=== PATIENT | male | born 1950 | race Caucasian/White ===

== ENCOUNTER 2021-03-09 10:50 | Day surgery (SDC) | payer MEDICARE, OTHER ==
[~2021-03-09] VITALS: Ht 180.3 cm; Wt 77.2 kg
[~2021-03-09 10:50] MED LIST: ACCUPRIL20TAB PO; MULTIVITAMIN SEN PO; PRAVACHOL 20MG20 MG PO; THE MEDICINE S200 M2 PO; ZYLOPRIM 100MG100 MG PO
--- NOTE | 2021-03-09 11:05 | NUR ---
Patient is alert and oriented. Consent reviewed and patient verbalized understanding of procedure, signing the related paperwork. Medications and HX reviewed. Patient voided prior to changing into his clean gown. Warm blanket provided. Vitals obatined. Non-slip socks are on. IV started in R FA on first attempt. LR is infusing without difficulty and set to 100ml/hr. Physical assessment completed, see physical asssessment in [facility] [place]. Side rails x2. Call hoffmann is at bedside. First and last name + verfied with patient and compared to wristband.
[2021-03-09] MEDS ORDERED: ALLOPURINOL PO (11:27)
[2021-03-09] MEDS ORDERED: NORVASC 5MG5 MG/TAB PO (11:27)
[2021-03-09 11:58] VITALS: BP 130/86; PULSE 97; TEMP 98.7
--- NOTE | 2021-03-09 14:10 | NUR ---
Patient was taken back to the OR by NIKI Ruiz.
[2021-03-09] MEDS ORDERED: NORCO 325 MG-51 TAB PO (15:54)
[2021-03-09 16:35] VITALS: BP 151/86; PULSE 81; TEMP 97.8
--- NOTE | 2021-03-09 16:35 | NUR ---
Patient arrived on cart from PACU, escorted by Coni PRINCE. Report obtained. Vitals obtained. Patient is tolerating his ice chips well and requested a cold sprite to drink. Call hoffmann is at bedside. Side rails x2. Will continue to monitor per intervals.
[2021-03-09 16:50] VITALS: BP 130/83; PULSE 84
--- NOTE | 2021-03-09 16:50 | NUR ---
VITALS OBTAINED. PATIENT IS TOLERATING HIS SPRITE.
--- NOTE | 2021-03-09 17:00 | NUR ---
PATIENT GOT NEAUSOUS AND VOMITED ONCE. HE STATES FELLING BETTER. ZOFRAN TO BE ADMINISTERED.
[2021-03-09 17:05] VITALS: BP 131/83; PULSE 94
--- NOTE | 2021-03-09 17:15 | NUR ---
PATIENT REQUESTED CRACKERS AND IS TOLERATING THEM WELL.
--- NOTE | 2021-03-09 17:30 | NUR ---
Patient is calling his brother.
--- NOTE | 2021-03-09 17:40 | NUR ---
Patient was assisted to bathroom by NIKI Calvo and NIKI Chase. Patient was able to successfully void and ambulate back to his bed without difficulty. Denies nausea.
[2021-03-09 17:50] VITALS: BP 122/81; PULSE 85
--- NOTE | 2021-03-09 17:52 | NUR ---
public area supervisor was called to update her on my patients current situation. She said she would call me back with more information.
--- NOTE | 2021-03-09 17:57 | NUR ---
supervisor forming department called and said it was fine to escort patient to ED entrence to wait for his ride. His brother is on his way from [place].
--- NOTE | 2021-03-09 18:00 | NUR ---
Discharge instructions were reviewed at this time, along with educational material. Patient verbalized understanding of discharge information. IV was discontinued at this time due to impending discharge. Catheter tip is intact. Pressure dressing applied. Patient denied needing help to change.
--- NOTE | 2021-03-09 18:30 | NUR ---
Patient was escorted to the ED waiting room to wait for his ride to arrive. Patient has his discharge instructions, educational material and personal belongings. Patient denies having any further questions or concerns.
== END 2021-03-09 18:30 | disposition home or self-care (01) ==
LOC: SDCO 10:50
DX: K40.20 Bilateral inguinal hernia, without obstruction or gangrene, not specified as recurrent (principal); I10 Essential (primary) hypertension; E78.00 Pure hypercholesterolemia, unspecified; E78.5 Hyperlipidemia, unspecified; M19.90 Unspecified osteoarthritis, unspecified site; Z79.899 Other long term (current) drug therapy; Z90.79 Acquired absence of other genital organ(s); Z85.46 Personal history of malignant neoplasm of prostate; Z80.42 Family history of malignant neoplasm of prostate; Z80.8 Family history of malignant neoplasm of other organs or systems
CPT/HCPCS: C1781; J0690; J1100; J1170; J2405; J2704; J3010; J7120

== ENCOUNTER 2023-05-10 11:29 | Day surgery (SDC) | payer MEDICARE, OTHER ==
[2023-05-10] VITALS (7 sets, daily range): BP systolic 107–152; BP diastolic 71–93; PULSE 58–114; TEMP 97.4–98.1
[~2023-05-10] VITALS: Ht 180.3 cm; Wt 82.8 kg
[~2023-05-10 11:29] MED LIST changes: +ALLOPURINOL PO; +LR 1,000 ML IV SCH; +NORCO 325 MG-51 TAB PO; +NORVASC 5MG5 MG/TAB PO
[2023-05-10] MEDS ORDERED: MULTI VITAMINS1 TAB PO (12:44)
[2023-05-10] MEDS ORDERED: THE MEDICINE S200 M2 PO (12:44)
[2023-05-10] MEDS ORDERED: fentaNYL 50 MCG/ML 2 ML VIAL ONE (12:50)
[2023-05-10] MEDS ORDERED: Lidocaine PF 2% (20 MG/ML) 5 ML VIAL ONE (12:51)
[2023-05-10] MEDS ORDERED: dexAMETHasone 10 MG/ML VIAL ONE (12:52)
[2023-05-10] MEDS ORDERED: Ondansetron 4 MG/2 ML VIAL ONE (12:52)
[2023-05-10] MEDS ORDERED: NS 10 ML IV ONE (12:52)
[2023-05-10] MEDS ORDERED: Ondansetron 4 MG/2 ML VIAL IV PRN (13:00)
[2023-05-10] MEDS ORDERED: Morphine 4 MG/ML VIAL IV PRN (13:00)
[2023-05-10] MEDS ORDERED: HYDROmorphone 2 MG/1 ML VIAL IV PRN (13:00)
[2023-05-10] MEDS ORDERED: hydrALAZINE 20 MG/ML 1 ML VIAL IV PRN (13:00)
[2023-05-10] MEDS ORDERED: fentaNYL 50 MCG/ML 2 ML VIAL IV PRN (13:00)
[2023-05-10] MEDS ORDERED: Lidocaine 2% (20 MG/ML) 20 ML UROJET UR ONE (14:09)
[2023-05-10] MEDS ORDERED: oxyCODONE/Acetaminophen 5-325 MG TAB PO PRN (15:00)
[2023-05-10] MEDS ORDERED: Ketorolac 15 MG/ML VIAL IV PRN (15:00)
[2023-05-10] MEDS ORDERED: Hyoscyamine 0.125 MG Sublingual TAB SL PRN (15:00)
[2023-05-10] MEDS ORDERED: Apixaban 5 MG TAB PO SCH (15:44)
[2023-05-10] MEDS ORDERED: ELIQUIS 5MG PO (15:45)
[2023-05-10] MEDS ORDERED: TOPROL XL 25MG25 MG PO (15:45)
--- NOTE | 2023-05-10 15:45 | NUR ---
PATIENT RETURNED TO ROOM 7 VIA CART, ALERT AND ORIENTED X3. PATIENT IS PLEASANT AND RATES PAIN TOLERABLE (2/10) TO RIGHT FLANK, DENIES ANY OTHER PAIN. DENIES PAIN INTERVENTIONS. DENIES NAUSEA AND SHORTNESS OF BREATH. BREATHING REGULAR AND UNLABORED ON ROOM AIR. LUNG SOUNDS CLEAR BILATERAL. HEART RATE AND RHYTHM IRREGULAR. PATIENT EVALUATED IN PACU BY CARDIOLOGY PRIOR TO TRANSFER. SEE CARDIOLOGY NOTE. SKIN WARM AND DRY. NO EDEMA. ABDOMEN SOFT AND ROUNDED. SEE CHART FOR VITAL SIGNS. NURSE HANDOFF COMPLETED IN ROOM. PATIENT HAD SPRITE AND A MUFFIN. BOTH FOOD AND DRINK TOLERATED WELL. NO DYSPHAGIA. 1557: PRIMARY NURSE SPOKE WITH ELIZABETH DURAN REGARDING CARDIOLOGY FOLLOW UP APPOINTMENTS AND PLAN. 1603: SEE EMAR FOR ELIQUIS AND METOPROLOL ADMINISTERED. SEE CHART FOR VITAL SIGNS.
--- NOTE | 2023-05-10 16:58 | NUR ---
1629: PATIENT AMBULATED TO RESTROOM WITH STEADY GAIT AND VOIDED WITHOUT DIFFICULTY. DENIES BLOOD CLOTS IN URINE. DENIES FEELING LIGHT HEADED OR SHORT OF BREATH. STATES PAIN IS "TOLERABLE" 2/10 TO RIGHT FLANK. DENIES PAIN INTERVENTIONS. 1639: DISCHARGE TEACHING COMPLETED WITH PRINTED UROLOGY EDUCATION AND INSTRUCTIONS SENT HOME WITH PATIENT. NEW CARDIAC MEDICATIONS, DIAGNOSIS, RISKS FOR BLEEDING AND BLOOD CLOTS DISCUSSED WITH EDUCATIONAL MATERIAL SENT HOME WITH PATIENT. PATIENT VERBALIZED UNDERSTANDING OF UROLOGY FOLLOW UP APPOINTMENT DATE/TIME AND LOCATION. INSTRUCTED PATIENT TO WAIT FOR A CALL FROM OFFICE TO SCHEDULE FOLLOW UP STUDIES. PATIENT VERBALIZED UNDERSTANDING. 1648: IV REMOVED. GAUZE AND COBAN PLACED OVER SITE. 1658: PATIENT INSTRUCTED TO [facility] MEDICATIONS AT PHARMACY ON FILE AND DISCHARGED HOME WITH [facility].
== END 2023-05-10 16:58 | disposition home or self-care (01) ==
LOC: SDCO 11:29
DX: N20.2 Calculus of kidney with calculus of ureter (principal); N52.9 Male erectile dysfunction, unspecified; Z90.79 Acquired absence of other genital organ(s); Z85.46 Personal history of malignant neoplasm of prostate
CPT/HCPCS: C1769; C2617; J0690; J1100; J2405; J2704; J3010; J7120